=== PATIENT | male | born 1960 | race African-American/Black ===

== ENCOUNTER 2017-05-19 13:24 | Emergency (ER) | payer MEDICAID, OTHER ==
[~2017-05-19] VITALS: Ht 185.4 cm; Wt 81.5 kg
[~2017-05-19 13:24] MED LIST: BENZ2TAB10 PO; CLON.2 PO; OLAN10TA6 PO; OLAN7.5T2 PO
[2017-05-19 14:47] LABS: BASOPHILS # (AUTO) 0.01 K/uL (0.00-0.20); BASOPHILS % (AUTO) 0.3 % (0.0-2.0); EOSINOPHILS # (AUTO) 0.15 K/uL (0.00-0.70); EOSINOPHILS % (AUTO) 2.64 % (1.0-6.0); HEMATOCRIT 40.8 % (41-53); HEMOGLOBIN 13.2 g/dL (13.5-17.5); LYMPHOCYTES # (AUTO) 1.5 K/uL (1.0-4.8); LYMPHOCYTES % (AUTO) 26.4 % (22.0-44.0); MEAN CORPUSCULAR HEMOGLOBIN 26.3 pg (26.0-34.0); MEAN CORPUSCULAR HGB CONC 32.3 G/dL (31.0-37.0); MEAN CORPUSCULAR VOLUME 81 fL (80-100); MONOCYTES # (AUTO) 0.5 K/uL (0.1-1.0); MONOCYTES % (AUTO) 9.5 % (2.0-9.0); NEUTROPHILS # (AUTO) 3.4 K/uL (1.8-7.7); NEUTROPHILS % (AUTO) 61.3 % (40.0-70.0); PLATELET COUNT (AUTO) 208 K/uL (150-450); RED CELL DISTRIBUTION WIDTH 15.1 % (11.5-14.5)
[2017-05-19 14:52] LABS: AMPHET/METH SCREEN,URINE NEGATIVE (NEGATIVE); BARBITURATE SCREEN, URINE NEGATIVE (NEGATIVE); BENZODIAZEPINES SCREEN,URINE NEGATIVE (NEGATIVE); CANNABINOID SCREEN,URINE NEGATIVE (NEGATIVE); COCAINE SCREEN,URINE NEGATIVE (NEGATIVE); METHADONE SCREEN, URINE NEGATIVE (NEGATIVE); OPIATE SCREEN,URINE NEGATIVE (NEGATIVE)
[2017-05-19 14:53] LABS: PHENCYCLIDINE SCREEN,URINE NEGATIVE (NEGATIVE)
[2017-05-19 14:53] LABS: ANION GAP 7 mmol/L (8-16); CALCIUM, TOTAL 9.1 mg/dL (8.8-10.5); CARBON DIOXIDE 28 mmol/L (22-29); CHLORIDE 103 mmol/L (98-107); CREATININE 1.19 mg/dL (0.60-1.30); GLOMERULAR FILTR. RATE CALC > 60 mL/min (>60); GLUCOSE,RANDOM 158 mg/dL (70-110); POTASSIUM 3.3 mmol/L (3.5-5.1); SODIUM SERUM 138 mmol/L (136-145); UREA NITROGEN, BLOOD 20 mg/dL (7-18)
[2017-05-19 14:59] LABS: ALANINE AMINOTRANSFERASE 54 U/L (12-78); ALBUMIN 3.7 g/dL (3.4-5.0); ALKALINE PHOSPHATASE 85 U/L (46-116); ASPARTATE AMINOTRANSFERASE 36 U/L (15-37); BILIRUBIN,TOTAL 0.3 mg/dL (0.1-1.0); TOTAL PROTEIN, SERUM 8.1 g/dL (6.4-8.2)
[2017-05-19 15:38] VITALS: BP 130/79
== END 2017-05-19 16:11 | disposition home or self-care (01) ==
LOC: EMS 13:25
DX: F20.9 Schizophrenia, unspecified (principal); E11.9 Type 2 diabetes mellitus without complications
CPT/HCPCS: 36415; 80053; 80307; 85025; 99284; G0480

== ENCOUNTER 2019-04-28 12:53 | Inpatient (IN) | payer MEDICAID, OTHER ==
[~2019-04-28] VITALS: Ht 185.4 cm; Wt 105.5 kg
[~2019-04-28 12:53] MED LIST changes: -OLAN10TA6 PO
[2019-04-28 14:55] LABS: GLUCOSE,POINT OF CARE 94 MG/DL (70-110)
[2019-04-28 15:31] LABS: AMPHET/METH SCREEN,URINE NEGATIVE (NEGATIVE); BARBITURATE SCREEN, URINE NEGATIVE (NEGATIVE); BENZODIAZEPINES SCREEN,URINE NEGATIVE (NEGATIVE); CANNABINOID SCREEN,URINE NEGATIVE (NEGATIVE); COCAINE SCREEN,URINE NEGATIVE (NEGATIVE); METHADONE SCREEN, URINE NEGATIVE (NEGATIVE); OPIATE SCREEN,URINE NEGATIVE (NEGATIVE)
[2019-04-28 15:32] LABS: PHENCYCLIDINE SCREEN,URINE NEGATIVE (NEGATIVE)
[2019-04-28] MEDS ORDERED: TUBERCULIN, PURIFIED PROTEIN DERIVATIVE 5 TU/0.1 ML SYRINGE ID ONE (17:45)
[2019-04-28] MEDS ORDERED: GuaiFENesin/D-METHORPHAN [SUGAR-FREE] 200-20MG/10 ML SYRUP UDCUP PO PRN (17:45)
[2019-04-28] MEDS ORDERED: MAG HYDROX/AL HYDROX/SIMETH ES 30 ML SUSPENSION UDCUP PO PRN (17:45)
[2019-04-28] MEDS ORDERED: ACETAMINOPHEN 325 MG TABLET PO PRN (17:45)
[2019-04-28] MEDS ORDERED: OLANZapine 5 MG RAPDIS TABLET PO PRN (17:45)
[2019-04-28] MEDS ORDERED: LOPERAMIDE HCL 2 MG CAPSULE PO PRN (17:45)
[2019-04-28] MEDS ORDERED: MAGNESIUM HYDROXIDE SUSPENSION 30 ML UDCUP PO PRN (17:45)
[2019-04-28] MEDS ORDERED: PROMETHAZINE HCL 25 MG TABLET PO PRN (17:45)
[2019-04-28] MEDS: OLANZapine 5 MG RAPDIS TABLET PO SCH (21:00)
[2019-04-29 02:57] VITALS: BP 119/83
[2019-04-29] MEDS ORDERED: INFLUENZA VIRUS VACCINE QVS 2019-20 (3YR+)/PF 60 MCG/0.5 ML SYRINGE IM ONE (06:00)
[2019-04-29] MEDS: MULTIVITAMINS WITH MINERALS, THERAPEUTIC TABLET PO SCH (08:11)
[2019-04-29] MEDS: FOLIC ACID 1 MG TABLET PO SCH (08:12)
[2019-04-29] MEDS: NALTREXONE HCL 50 MG TABLET PO SCH (08:12)
[2019-04-29] MEDS: THIAMINE HCL 100 MG TABLET PO SCH ×3 (08:12→16:10)
[2019-04-29 09:36] VITALS: BP 140/91
[2019-04-29] MEDS: LORazepam 2 MG TABLET PO PRN (16:10)
[2019-04-29 16:24] VITALS: BP 139/87
[2019-04-29] MEDS: DIVALPROEX SODIUM 500 MG ER TABLET PO SCH (20:43)
[2019-04-29] MEDS: OLANZapine 5 MG RAPDIS TABLET PO SCH (20:43)
[2019-04-29] MEDS: HydrOXYzine PAMOATE 50 MG CAPSULE PO PRN (20:43)
[2019-04-30 00:30] VITALS: BP 126/76
[2019-04-30 08:04] VITALS: BP 135/75
[2019-04-30] MEDS: MULTIVITAMINS WITH MINERALS, THERAPEUTIC TABLET PO SCH (08:31)
[2019-04-30] MEDS: FOLIC ACID 1 MG TABLET PO SCH (08:31)
[2019-04-30] MEDS: THIAMINE HCL 100 MG TABLET PO SCH ×2 (08:32→16:18)
[2019-04-30] MEDS: NALTREXONE HCL 50 MG TABLET PO SCH (08:32)
[2019-04-30] MEDS ORDERED: TUBERCULIN, PURIFIED PROTEIN DERIVATIVE 5 TU/0.1 ML SYRINGE ID ONE (13:15)
[2019-04-30 16:00] VITALS: BP 140/88
[2019-04-30] MEDS: HydrOXYzine PAMOATE 50 MG CAPSULE PO PRN ×2 (16:18→21:49)
[2019-04-30] MEDS: OLANZapine 5 MG RAPDIS TABLET PO SCH (20:47)
[2019-04-30] MEDS: DIVALPROEX SODIUM 500 MG ER TABLET PO SCH (20:47)
[2019-05-01 01:08] VITALS: BP 124/84
[2019-05-01 08:31] VITALS: BP 141/81
[2019-05-01] MEDS: FOLIC ACID 1 MG TABLET PO SCH (09:18)
[2019-05-01] MEDS: THIAMINE HCL 100 MG TABLET PO SCH ×2 (09:18→16:00)
[2019-05-01] MEDS: MULTIVITAMINS WITH MINERALS, THERAPEUTIC TABLET PO SCH (09:18)
[2019-05-01] MEDS: NALTREXONE HCL 50 MG TABLET PO SCH (09:19)
[2019-05-01] MEDS: HydrOXYzine PAMOATE 50 MG CAPSULE PO PRN (16:01)
[2019-05-01] MEDS: ZOLPIDEM TARTRATE 10 MG TABLET PO PRN (20:06)
[2019-05-01] MEDS: DIVALPROEX SODIUM 500 MG ER TABLET PO SCH (20:06)
[2019-05-01] MEDS: OLANZapine 5 MG RAPDIS TABLET PO SCH (20:06)
[2019-05-02 06:12] VITALS: BP 137/87
[2019-05-02 08:08] VITALS: BP 128/81
[2019-05-02] MEDS: THIAMINE HCL 100 MG TABLET PO SCH ×2 (08:08→16:06)
[2019-05-02] MEDS: NALTREXONE HCL 50 MG TABLET PO SCH (08:08)
[2019-05-02] MEDS: FOLIC ACID 1 MG TABLET PO SCH (08:08)
[2019-05-02] MEDS: MULTIVITAMINS WITH MINERALS, THERAPEUTIC TABLET PO SCH (08:08)
[2019-05-02 16:02] VITALS: BP 146/78
[2019-05-02] MEDS: DIVALPROEX SODIUM 500 MG ER TABLET PO SCH (20:00)
[2019-05-02] MEDS: OLANZapine 5 MG RAPDIS TABLET PO SCH (20:00)
[2019-05-03 00:02] VITALS: BP 133/87
[2019-05-03] MEDS: ZOLPIDEM TARTRATE 10 MG TABLET PO PRN (00:23)
[2019-05-03 08:12] VITALS: BP 128/86
[2019-05-03] MEDS: HydrOXYzine PAMOATE 50 MG CAPSULE PO PRN (08:23)
[2019-05-03] MEDS: THIAMINE HCL 100 MG TABLET PO SCH ×2 (08:23→16:16)
[2019-05-03] MEDS: MULTIVITAMINS WITH MINERALS, THERAPEUTIC TABLET PO SCH (08:23)
[2019-05-03] MEDS: FOLIC ACID 1 MG TABLET PO SCH (08:23)
[2019-05-03] MEDS: NALTREXONE HCL 50 MG TABLET PO SCH (08:23)
[2019-05-03 16:00] VITALS: BP 127/75
[2019-05-03] MEDS: LORazepam 2 MG TABLET PO PRN (16:16)
[2019-05-03] MEDS: DIVALPROEX SODIUM 500 MG ER TABLET PO SCH (20:23)
[2019-05-03] MEDS: OLANZapine 5 MG RAPDIS TABLET PO SCH (20:23)
[2019-05-04 06:02] VITALS: BP 132/72
[2019-05-04 08:00] VITALS: BP 150/77
[2019-05-04] MEDS: MULTIVITAMINS WITH MINERALS, THERAPEUTIC TABLET PO SCH (08:07)
[2019-05-04] MEDS: LORazepam 2 MG TABLET PO PRN ×2 (08:07→16:29)
[2019-05-04] MEDS: NALTREXONE HCL 50 MG TABLET PO SCH (08:07)
[2019-05-04] MEDS: THIAMINE HCL 100 MG TABLET PO SCH ×2 (08:07→16:29)
[2019-05-04] MEDS: FOLIC ACID 1 MG TABLET PO SCH (08:07)
[2019-05-04 16:00] VITALS: BP 125/89
[2019-05-04] MEDS: DIVALPROEX SODIUM 500 MG ER TABLET PO SCH (20:10)
[2019-05-04] MEDS: OLANZapine 5 MG RAPDIS TABLET PO SCH (20:10)
[2019-05-05 00:59] VITALS: BP 128/88
[2019-05-05 08:04] VITALS: BP 159/95
[2019-05-05] MEDS: MULTIVITAMINS WITH MINERALS, THERAPEUTIC TABLET PO SCH (08:05)
[2019-05-05] MEDS: FOLIC ACID 1 MG TABLET PO SCH (08:06)
[2019-05-05] MEDS: THIAMINE HCL 100 MG TABLET PO SCH ×2 (08:06→16:13)
[2019-05-05] MEDS: NALTREXONE HCL 50 MG TABLET PO SCH (08:06)
[2019-05-05] MEDS: LORazepam 2 MG TABLET PO PRN ×2 (08:11→20:12)
[2019-05-05 16:44] VITALS: BP_SYST 123; BP_SYST 141; BP_DIAS 78; BP_DIAS 97
[2019-05-05] MEDS: DIVALPROEX SODIUM 500 MG ER TABLET PO SCH (20:11)
[2019-05-05] MEDS: OLANZapine 5 MG RAPDIS TABLET PO SCH (20:12)
[2019-05-06 06:30] VITALS: BP 127/85
[2019-05-06 07:39] LABS: BASOPHILS % (AUTO) 0.3 % (0.0-2.0); EOSINOPHILS % (AUTO) 2.9 % (1.0-6.0); HEMATOCRIT 36.7 % (41-53); HEMOGLOBIN 11.7 g/dL (13.5-17.5); LYMPHOCYTES # (AUTO) 1.4 K/uL (1.0-4.8); LYMPHOCYTES % (AUTO) 32.9 % (22.0-44.0); MEAN CORPUSCULAR HEMOGLOBIN 26.8 pg (26.0-34.0); MEAN CORPUSCULAR HGB CONC 31.8 G/dL (31.0-37.0); MEAN CORPUSCULAR VOLUME 84 fL (80-100); MONOCYTES # (AUTO) 0.5 K/uL (0.1-1.0); MONOCYTES % (AUTO) 10.6 % (2.0-9.0); NEUTROPHILS # (AUTO) 2.3 K/uL (1.8-7.7); NEUTROPHILS % (AUTO) 53.3 % (40.0-70.0); PLATELET COUNT (AUTO) 271 K/uL (150-450); RED BLOOD CELL COUNT(AUTO) 4.34 MIL/uL (4.50-5.90); RED CELL DISTRIBUTION WIDTH 16.5 % (11.5-14.5)
[2019-05-06 07:54] LABS: HEMOGLOBIN A1C 6.1 % (4.5-6.2)
[2019-05-06 08:03] VITALS: BP 141/80
[2019-05-06] MEDS: NALTREXONE HCL 50 MG TABLET PO SCH (08:12)
[2019-05-06] MEDS: THIAMINE HCL 100 MG TABLET PO SCH ×2 (08:13→16:29)
[2019-05-06] MEDS: MULTIVITAMINS WITH MINERALS, THERAPEUTIC TABLET PO SCH (08:13)
[2019-05-06] MEDS: FOLIC ACID 1 MG TABLET PO SCH (08:13)
[2019-05-06 08:19] LABS: CHOL/HDL RATIO 3.2 (4.2-7.3); FREE T4 (FREE THYROXINE) 0.82 ng/dL (0.76-1.46); THYROID STIMULATING HORMONE 3.29 uIU/mL (0.36-3.74)
[2019-05-06] MEDS ORDERED: OLAN5TAB30 PO (12:36)
[2019-05-06] MEDS ORDERED: DIVA500T52 PO (12:36)
[2019-05-06] MEDS ORDERED: NALT50TA PO (12:36)
[2019-05-06] MEDS ORDERED: DIVA250T45 PO (12:36)
[2019-05-06 16:00] VITALS: BP 140/89
[2019-05-06] MEDS: LORazepam 2 MG TABLET PO PRN ×2 (16:29→20:30)
[2019-05-06] MEDS: DIVALPROEX SODIUM 500 MG ER TABLET PO SCH (20:29)
[2019-05-06] MEDS: OLANZapine 5 MG RAPDIS TABLET PO SCH (20:30)
[2019-05-06] MEDS ORDERED: DIVALPROEX SODIUM 250 MG ER TABLET PO SCH (21:00)
[2019-05-07 00:56] VITALS: BP 144/87
[2019-05-07 08:06] VITALS: BP 129/88
[2019-05-07] MEDS: MULTIVITAMINS WITH MINERALS, THERAPEUTIC TABLET PO SCH (08:34)
[2019-05-07] MEDS: NALTREXONE HCL 50 MG TABLET PO SCH (08:34)
[2019-05-07] MEDS: THIAMINE HCL 100 MG TABLET PO SCH (08:34)
[2019-05-07] MEDS: FOLIC ACID 1 MG TABLET PO SCH (08:34)
[2019-05-07] MEDS ORDERED: NALT50TA6 PO (10:24)
[2019-05-07] MEDS ORDERED: DIVA500T52 PO (10:24)
[2019-05-07] MEDS ORDERED: DIVA250T45 PO (10:24)
== END 2019-05-07 13:30 | disposition home or self-care (01) | DRG 750 ==
LOC: EMS 12:54 → B3A 04-29 00:36
PROVIDERS: ADMIT Psychiatry & Neurology Psychiatry; ATTEND Psychiatry & Neurology Psychiatry
DX: F20.0 Paranoid schizophrenia (principal); E11.9 Type 2 diabetes mellitus without complications; D64.9 Anemia, unspecified; E78.5 Hyperlipidemia, unspecified; E87.6 Hypokalemia; F12.90 Cannabis use, unspecified, uncomplicated; F14.90 Cocaine use, unspecified, uncomplicated; F17.210 Nicotine dependence, cigarettes, uncomplicated; F60.0 Paranoid personality disorder; Z59.0 Homelessness; Z91.19 Patient's noncompliance with other medical treatment and regimen; Z79.899 Other long term (current) drug therapy; Z28.21 Immunization not carried out because of patient refusal
CPT/HCPCS: 83036; 84439; 84443; 86592; 90686

== ENCOUNTER 2019-06-02 22:02 | Inpatient (IN) | payer MEDICAID, OTHER ==
[~2019-06-02] VITALS: Ht 185.4 cm; Wt 115.0 kg
[~2019-06-02 22:02] MED LIST changes: -BENZ2TAB10 PO; -CLON.2 PO; +DIVA250T45 PO; +DIVA500T52 PO; +NALT50TA PO; +NALT50TA6 PO; +OLAN5TAB30 PO; -OLAN7.5T2 PO
[2019-06-02 23:43] LABS: BASOPHILS % (AUTO) 0.5 % (0.0-2.0); EOSINOPHILS % (AUTO) 3.3 % (1.0-6.0); HEMATOCRIT 36.7 % (41-53); HEMOGLOBIN 11.8 g/dL (13.5-17.5); LYMPHOCYTES # (AUTO) 2.3 K/uL (1.0-4.8); LYMPHOCYTES % (AUTO) 41.5 % (22.0-44.0); MEAN CORPUSCULAR HEMOGLOBIN 26.9 pg (26.0-34.0); MEAN CORPUSCULAR HGB CONC 32.2 G/dL (31.0-37.0); MEAN CORPUSCULAR VOLUME 84 fL (80-100); MONOCYTES # (AUTO) 0.7 K/uL (0.1-1.0); MONOCYTES % (AUTO) 13.1 % (2.0-9.0); NEUTROPHILS # (AUTO) 2.3 K/uL (1.8-7.7); NEUTROPHILS % (AUTO) 41.6 % (40.0-70.0); PLATELET COUNT (AUTO) 289 K/uL (150-450); RED BLOOD CELL COUNT(AUTO) 4.39 MIL/uL (4.50-5.90)
[2019-06-02 23:53] LABS: ANION GAP 8 mmol/L (8-16); CALCIUM, TOTAL 8.7 mg/dL (8.8-10.5); CARBON DIOXIDE 27 mmol/L (22-29); CHLORIDE 104 mmol/L (98-107); CREATININE 0.66 mg/dL (0.60-1.30); GLOMERULAR FILTR. RATE CALC > 60 mL/min (>60); GLUCOSE,RANDOM 102 mg/dL (70-110); POTASSIUM 3.7 mmol/L (3.5-5.1); SODIUM SERUM 139 mmol/L (136-145); UREA NITROGEN, BLOOD 17 mg/dL (7-18)
[2019-06-02 23:59] LABS: ALANINE AMINOTRANSFERASE 23 U/L (12-78); ALBUMIN 3.6 g/dL (3.4-5.0); ALKALINE PHOSPHATASE 55 U/L (46-116); ASPARTATE AMINOTRANSFERASE 16 U/L (15-37); BILIRUBIN,TOTAL 0.1 mg/dL (0.1-1.0); TOTAL PROTEIN, SERUM 7.5 g/dL (6.4-8.2)
[2019-06-03] MEDS ORDERED: ZOLPIDEM TARTRATE 10 MG TABLET PO PRN (03:45)
[2019-06-03] MEDS ORDERED: INFLUENZA VIRUS VACCINE QVS 2019-20 (3YR+)/PF 60 MCG/0.5 ML SYRINGE IM ONE (11:00)
[2019-06-03 11:03] VITALS: BP 134/81
[2019-06-03] MEDS ORDERED: GuaiFENesin/D-METHORPHAN [SUGAR-FREE] 200-20MG/10 ML SYRUP UDCUP PO PRN (15:00)
[2019-06-03] MEDS ORDERED: LOPERAMIDE HCL 2 MG CAPSULE PO PRN (15:00)
[2019-06-03] MEDS ORDERED: MAGNESIUM HYDROXIDE SUSPENSION 30 ML UDCUP PO PRN (15:00)
[2019-06-03] MEDS ORDERED: MAG HYDROX/AL HYDROX/SIMETH ES 30 ML SUSPENSION UDCUP PO PRN (15:00)
[2019-06-03] MEDS ORDERED: HydrOXYzine PAMOATE 50 MG CAPSULE PO PRN (15:00)
[2019-06-03] MEDS ORDERED: ACETAMINOPHEN 325 MG TABLET PO PRN (15:00)
[2019-06-03] MEDS ORDERED: PROMETHAZINE HCL 25 MG TABLET PO PRN (15:00)
[2019-06-03] MEDS: THIAMINE HCL 100 MG TABLET PO SCH (16:20)
[2019-06-03] MEDS ORDERED: BISACODYL 5 MG EC TABLET PO PRN (18:15)
[2019-06-03] MEDS: DIVALPROEX SODIUM 250 MG ER TABLET PO SCH (20:16)
[2019-06-03] MEDS: OLANZapine 5 MG RAPDIS TABLET PO SCH (20:17)
[2019-06-04 03:00] VITALS: BP 133/84
[2019-06-04] MEDS: MULTIVITAMINS WITH MINERALS, THERAPEUTIC TABLET PO SCH (08:24)
[2019-06-04] MEDS: NALTREXONE HCL 50 MG TABLET PO SCH (08:24)
[2019-06-04] MEDS: FOLIC ACID 1 MG TABLET PO SCH (08:24)
[2019-06-04] MEDS: THIAMINE HCL 100 MG TABLET PO SCH ×2 (08:25→16:56)
[2019-06-04 08:50] VITALS: BP 138/80
[2019-06-04 17:35] VITALS: BP 128/76
[2019-06-04] MEDS: OLANZapine 5 MG RAPDIS TABLET PO SCH (20:38)
[2019-06-04] MEDS: DIVALPROEX SODIUM 250 MG ER TABLET PO SCH (20:38)
[2019-06-05 07:10] VITALS: BP 142/98
[2019-06-05 08:20] VITALS: BP 137/79
[2019-06-05] MEDS: MULTIVITAMINS WITH MINERALS, THERAPEUTIC TABLET PO SCH (08:55)
[2019-06-05] MEDS: FOLIC ACID 1 MG TABLET PO SCH (08:56)
[2019-06-05] MEDS: THIAMINE HCL 100 MG TABLET PO SCH ×2 (08:56→16:25)
[2019-06-05] MEDS: NALTREXONE HCL 50 MG TABLET PO SCH (08:56)
[2019-06-05 16:04] VITALS: BP 127/68
[2019-06-05] MEDS: LORazepam 2 MG TABLET PO PRN (16:25)
[2019-06-05] MEDS: OLANZapine 5 MG RAPDIS TABLET PO PRN (16:25)
[2019-06-05] MEDS: OLANZapine 10 MG RAPDIS TABLET PO SCH (20:35)
[2019-06-05] MEDS: DIVALPROEX SODIUM 250 MG ER TABLET PO SCH (20:35)
[2019-06-06 06:15] VITALS: BP 142/99
[2019-06-06 08:00] VITALS: BP 119/86
[2019-06-06 08:10] LABS: CHOL/HDL RATIO 3.3 (4.2-7.3)
[2019-06-06] MEDS: NALTREXONE HCL 50 MG TABLET PO SCH (08:20)
[2019-06-06] MEDS: FOLIC ACID 1 MG TABLET PO SCH (08:20)
[2019-06-06] MEDS: MULTIVITAMINS WITH MINERALS, THERAPEUTIC TABLET PO SCH (08:20)
[2019-06-06] MEDS: THIAMINE HCL 100 MG TABLET PO SCH ×2 (08:20→16:15)
[2019-06-06] MEDS: LORazepam 2 MG TABLET PO PRN (16:15)
[2019-06-06 16:21] VITALS: BP 116/76
[2019-06-06] MEDS: DIVALPROEX SODIUM 250 MG ER TABLET PO SCH (20:18)
[2019-06-06] MEDS: OLANZapine 10 MG RAPDIS TABLET PO SCH (20:18)
[2019-06-07 00:58] VITALS: BP 128/81
[2019-06-07 08:16] VITALS: BP 120/97
[2019-06-07] MEDS: NALTREXONE HCL 50 MG TABLET PO SCH (08:27)
[2019-06-07] MEDS: FOLIC ACID 1 MG TABLET PO SCH (08:27)
[2019-06-07] MEDS: MULTIVITAMINS WITH MINERALS, THERAPEUTIC TABLET PO SCH (08:27)
[2019-06-07] MEDS: THIAMINE HCL 100 MG TABLET PO SCH ×2 (08:27→16:36)
[2019-06-07 16:15] VITALS: BP 130/67
[2019-06-07] MEDS: OLANZapine 10 MG RAPDIS TABLET PO SCH (20:28)
[2019-06-07] MEDS: DIVALPROEX SODIUM 250 MG ER TABLET PO SCH (20:28)
[2019-06-08 06:35] VITALS: BP 128/68
[2019-06-08 08:19] VITALS: BP 140/89
[2019-06-08] MEDS: NALTREXONE HCL 50 MG TABLET PO SCH (08:58)
[2019-06-08] MEDS: THIAMINE HCL 100 MG TABLET PO SCH ×2 (08:58→16:33)
[2019-06-08] MEDS: MULTIVITAMINS WITH MINERALS, THERAPEUTIC TABLET PO SCH (08:58)
[2019-06-08] MEDS: OLANZapine 5 MG RAPDIS TABLET PO PRN (08:59)
[2019-06-08] MEDS: FOLIC ACID 1 MG TABLET PO SCH (08:59)
[2019-06-08 18:54] VITALS: BP 132/83
[2019-06-08] MEDS: DIVALPROEX SODIUM 250 MG ER TABLET PO SCH (20:34)
[2019-06-08] MEDS: OLANZapine 10 MG RAPDIS TABLET PO SCH (20:35)
[2019-06-09 05:55] VITALS: BP 137/84
[2019-06-09 08:35] VITALS: BP 131/75
[2019-06-09] MEDS: MULTIVITAMINS WITH MINERALS, THERAPEUTIC TABLET PO SCH (08:52)
[2019-06-09] MEDS: FOLIC ACID 1 MG TABLET PO SCH (08:53)
[2019-06-09] MEDS: NALTREXONE HCL 50 MG TABLET PO SCH (08:53)
[2019-06-09] MEDS: THIAMINE HCL 100 MG TABLET PO SCH ×2 (08:53→16:46)
[2019-06-09 16:09] VITALS: BP 117/66
[2019-06-09] MEDS: DIVALPROEX SODIUM 250 MG ER TABLET PO SCH (21:02)
[2019-06-09] MEDS: LORazepam 2 MG TABLET PO PRN (21:02)
[2019-06-09] MEDS: OLANZapine 10 MG RAPDIS TABLET PO SCH (21:02)
[2019-06-10 02:58] VITALS: BP 139/93
[2019-06-10 08:17] VITALS: BP 122/88
[2019-06-10] MEDS: OLANZapine 5 MG RAPDIS TABLET PO PRN (08:55)
[2019-06-10] MEDS: MULTIVITAMINS WITH MINERALS, THERAPEUTIC TABLET PO SCH (08:55)
[2019-06-10] MEDS: THIAMINE HCL 100 MG TABLET PO SCH ×2 (08:55→16:51)
[2019-06-10] MEDS: NALTREXONE HCL 50 MG TABLET PO SCH (08:55)
[2019-06-10] MEDS: FOLIC ACID 1 MG TABLET PO SCH (08:55)
[2019-06-10 16:11] VITALS: BP 126/88
[2019-06-10] MEDS: LORazepam 2 MG TABLET PO PRN (16:51)
[2019-06-10] MEDS: OLANZapine 10 MG RAPDIS TABLET PO SCH (20:57)
[2019-06-10] MEDS: DIVALPROEX SODIUM 250 MG ER TABLET PO SCH (20:57)
[2019-06-11 02:26] VITALS: BP 130/100
[2019-06-11 08:26] VITALS: BP 131/101
[2019-06-11] MEDS: FOLIC ACID 1 MG TABLET PO SCH (09:13)
[2019-06-11] MEDS: MULTIVITAMINS WITH MINERALS, THERAPEUTIC TABLET PO SCH (09:13)
[2019-06-11] MEDS: THIAMINE HCL 100 MG TABLET PO SCH ×2 (09:13→16:46)
[2019-06-11] MEDS: NALTREXONE HCL 50 MG TABLET PO SCH (09:13)
[2019-06-11 09:41] VITALS: BP 130/79
[2019-06-11 16:04] VITALS: BP 107/66
[2019-06-11] MEDS: LORazepam 2 MG TABLET PO PRN (16:46)
[2019-06-11] MEDS: DIVALPROEX SODIUM 250 MG ER TABLET PO SCH (20:37)
[2019-06-11] MEDS: OLANZapine 10 MG RAPDIS TABLET PO SCH (20:37)
[2019-06-12 01:18] VITALS: BP 127/90
[2019-06-12 08:19] VITALS: BP 123/74
[2019-06-12] MEDS: FOLIC ACID 1 MG TABLET PO SCH (08:40)
[2019-06-12] MEDS: THIAMINE HCL 100 MG TABLET PO SCH ×2 (08:40→16:02)
[2019-06-12] MEDS: MULTIVITAMINS WITH MINERALS, THERAPEUTIC TABLET PO SCH (08:40)
[2019-06-12] MEDS: NALTREXONE HCL 50 MG TABLET PO SCH (08:40)
[2019-06-12 16:12] VITALS: BP 143/84
[2019-06-12] MEDS: DIVALPROEX SODIUM 250 MG ER TABLET PO SCH (20:36)
[2019-06-12] MEDS: OLANZapine 10 MG RAPDIS TABLET PO SCH (20:37)
[2019-06-13 06:35] VITALS: BP 132/79
[2019-06-13 08:35] VITALS: BP 125/72
[2019-06-13] MEDS: THIAMINE HCL 100 MG TABLET PO SCH (08:42)
[2019-06-13] MEDS: FOLIC ACID 1 MG TABLET PO SCH (08:42)
[2019-06-13] MEDS: MULTIVITAMINS WITH MINERALS, THERAPEUTIC TABLET PO SCH (08:42)
[2019-06-13] MEDS: NALTREXONE HCL 50 MG TABLET PO SCH (08:42)
[2019-06-13 16:21] VITALS: BP 134/86
[2019-06-13] MEDS: DIVALPROEX SODIUM 250 MG ER TABLET PO SCH (20:29)
[2019-06-13] MEDS: OLANZapine 10 MG RAPDIS TABLET PO SCH (20:29)
[2019-06-14 05:39] VITALS: BP 136/81
[2019-06-14] MEDS: MULTIVITAMINS WITH MINERALS, THERAPEUTIC TABLET PO SCH (08:24)
[2019-06-14] MEDS: NALTREXONE HCL 50 MG TABLET PO SCH (08:25)
[2019-06-14 16:02] VITALS: BP_SYST 96
[2019-06-14] MEDS: DIVALPROEX SODIUM 250 MG ER TABLET PO SCH (20:11)
[2019-06-14] MEDS: OLANZapine 10 MG RAPDIS TABLET PO SCH (20:12)
[2019-06-15 05:11] VITALS: BP 122/69
[2019-06-15 08:28] VITALS: BP 116/80
[2019-06-15] MEDS: NALTREXONE HCL 50 MG TABLET PO SCH (08:34)
[2019-06-15] MEDS: MULTIVITAMINS WITH MINERALS, THERAPEUTIC TABLET PO SCH (08:35)
[2019-06-15] MEDS: LORazepam 2 MG TABLET PO PRN (16:07)
[2019-06-15 16:39] VITALS: BP 120/86
[2019-06-15] MEDS: OLANZapine 10 MG RAPDIS TABLET PO SCH (20:34)
[2019-06-15] MEDS: DIVALPROEX SODIUM 250 MG ER TABLET PO SCH (20:34)
[2019-06-16 00:21] VITALS: BP 124/78
[2019-06-16 08:57] VITALS: BP 120/86
[2019-06-16] MEDS: MULTIVITAMINS WITH MINERALS, THERAPEUTIC TABLET PO SCH (09:56)
[2019-06-16] MEDS: NALTREXONE HCL 50 MG TABLET PO SCH (09:56)
[2019-06-16 16:05] VITALS: BP 134/82
[2019-06-16] MEDS: DIVALPROEX SODIUM 250 MG ER TABLET PO SCH (20:02)
[2019-06-16] MEDS: OLANZapine 10 MG RAPDIS TABLET PO SCH (20:03)
[2019-06-17 01:42] VITALS: BP 129/80
[2019-06-17 08:20] VITALS: BP 124/76
[2019-06-17] MEDS: MULTIVITAMINS WITH MINERALS, THERAPEUTIC TABLET PO SCH (08:41)
[2019-06-17] MEDS: NALTREXONE HCL 50 MG TABLET PO SCH (08:41)
[2019-06-17 16:29] VITALS: BP 118/88
[2019-06-17 17:38] VITALS: BP 118/88
[2019-06-17] MEDS: DIVALPROEX SODIUM 250 MG ER TABLET PO SCH (20:12)
[2019-06-17] MEDS: OLANZapine 10 MG RAPDIS TABLET PO SCH (20:13)
[2019-06-18 01:07] VITALS: BP 109/78
[2019-06-18 08:03] VITALS: BP 111/65
[2019-06-18] MEDS: MULTIVITAMINS WITH MINERALS, THERAPEUTIC TABLET PO SCH (08:37)
[2019-06-18] MEDS: NALTREXONE HCL 50 MG TABLET PO SCH (08:37)
[2019-06-18] MEDS: LORazepam 2 MG TABLET PO PRN ×2 (16:03→20:38)
[2019-06-18 16:15] VITALS: BP 132/78
[2019-06-18] MEDS: DIVALPROEX SODIUM 250 MG ER TABLET PO SCH (20:38)
[2019-06-18] MEDS: OLANZapine 10 MG RAPDIS TABLET PO SCH (20:38)
[2019-06-19 00:16] VITALS: BP 133/69
[2019-06-19] MEDS: MULTIVITAMINS WITH MINERALS, THERAPEUTIC TABLET PO SCH (08:27)
[2019-06-19] MEDS: NALTREXONE HCL 50 MG TABLET PO SCH (08:27)
[2019-06-19] MEDS ORDERED: DIVA-78 PO (13:00)
== END 2019-06-19 14:10 | disposition home or self-care (01) | DRG 750 ==
LOC: EMS 22:03 → B2S 06-03 07:00 → B2X 06-04 18:00 → B3A 06-04 18:01
PROVIDERS: ADMIT Psychiatry & Neurology Psychiatry; ATTEND Psychiatry & Neurology Psychiatry
DX: F20.0 Paranoid schizophrenia (principal); D64.9 Anemia, unspecified; E11.9 Type 2 diabetes mellitus without complications; E78.5 Hyperlipidemia, unspecified; F12.90 Cannabis use, unspecified, uncomplicated; F14.90 Cocaine use, unspecified, uncomplicated; I10 Essential (primary) hypertension; K59.00 Constipation, unspecified; R45.87 Impulsiveness; F17.210 Nicotine dependence, cigarettes, uncomplicated; G47.00 Insomnia, unspecified; Z59.0 Homelessness; Z91.19 Patient's noncompliance with other medical treatment and regimen; Z65.3 Problems related to other legal circumstances; Z28.21 Immunization not carried out because of patient refusal
CPT/HCPCS: 87081; G0480